=== PATIENT | female | born 1995 | race Caucasian/White ===

== ENCOUNTER 2018-05-02 10:37 | Emergency (ER) | payer MEDICAID ==
[~2018-05-02] VITALS: Ht 162.6 cm; Wt 65.0 kg
[2018-05-02 10:43] VITALS: BP 104/67
[2018-05-02] MEDS ORDERED: MAALOX/HYOSCYAMINE/LIDOCAINE 45 ML BTL PO ONE (11:30)
[2018-05-02] MEDS ORDERED: FAMOTIDINE 20 MG TABLET PO ONE (11:30)
[2018-05-02] MEDS ORDERED: ONDANSETRON ODT 4 MG PO ONE (11:30)
[2018-05-02 11:40] LABS: BASOPHILS # (AUTO) 0.03 x10^3/uL (0-0.1); BASOPHILS % (AUTO) 0 % (0-1); EOSINOPHILS # (AUTO) 0.27 x10^3/uL (0-0.4); EOSINOPHILS % (AUTO) 3 % (1-7); LYMPHOCYTES # (AUTO) 2.14 x10^3/uL (1-3.4); LYMPHOCYTES % (AUTO) 26 % (22-44); MD NO; MEAN CORPUSCULAR HEMOGLOBIN 32.2 pg (27.0-34.8); MEAN CORPUSCULAR HGB CONC 34.5 g/dL (32.4-35.8); MEAN CORPUSCULAR VOLUME 93.5 fL (80-100); MEAN PLATELET VOLUME 10.9 fL (7.4-10.4); MONOCYTES # (AUTO) 0.39 x10^3/uL (0.2-0.8); MONOCYTES % (AUTO) 5 % (2-9); NEUTROPHILS # (AUTO) 5.28 x10^3/uL (1.8-6.8); NEUTROPHILS % (AUTO) 65 % (42-75); PLATELET COUNT 134 x10^3/uL (130-400); RED BLOOD COUNT 4.41 x10^6/uL (3.82-5.3); RED CELL DISTRIBUTION WIDTH 13.3 % (9.6-15.2)
[2018-05-02 11:49] LABS: ALANINE AMINOTRANSFERASE 19 U/L (12-78); ALBUMIN 3.7 g/dL (3.4-5.0); ANION GAP 7 mmol/L (5-15); CALCIUM 8.7 mg/dL (8.5-10.1); CHLORIDE 107 mmol/L (98-107); CREATININE 0.74 mg/dL (0.55-1.02)
[2018-05-02 11:53] LABS: ALKALINE PHOSPHATASE 56 U/L (45-117); BILIRUBIN,TOTAL 0.4 mg/dL (0.2-1.0); TOTAL PROTEIN 7.1 g/dL (6.4-8.2)
[2018-05-02] MEDS ORDERED: NAPR220C2 PO (11:59)
[2018-05-02] MEDS ORDERED: MAALOX/HYOSCYAMINE/LIDOCAINE 45 ML BTL ONE (12:29)
[2018-05-02] MEDS ORDERED: ONDANSETRON ODT 4 MG ONE (12:29)
[2018-05-02] MEDS ORDERED: FAMOTIDINE 20 MG TABLET ONE (12:29)
== END 2018-05-02 13:21 | disposition home or self-care (01) ==
LOC: ED 13:15
DX: K29.00 Acute gastritis without bleeding (principal); F17.200 Nicotine dependence, unspecified, uncomplicated
CPT/HCPCS: 36415; 80053; 83690; 84703; 85025; 99284; Q0162

== ENCOUNTER 2020-02-18 21:42 | Emergency (ER) | payer MEDICAID ==
[~2020-02-18] VITALS: Ht 162.6 cm; Wt 87.4 kg
[~2020-02-18 21:42] MED LIST: BUPR-173 PO; NAPR220C2 PO; VALA500T8 PO
[2020-02-18 21:59] VITALS: BP 115/65
[2020-02-18 22:41] LABS: BASOPHILS # (AUTO) 0.02 x10^3/uL (0-0.1); BASOPHILS % (AUTO) 0 % (0-1); EOSINOPHILS # (AUTO) 0.42 x10^3/uL (0-0.4); EOSINOPHILS % (AUTO) 5 % (1-7); LYMPHOCYTES # (AUTO) 1.67 x10^3/uL (1-3.4); LYMPHOCYTES % (AUTO) 19 % (22-44); MD NO; MEAN CORPUSCULAR HEMOGLOBIN 34.6 pg (27.0-34.8); MEAN CORPUSCULAR HGB CONC 33.6 g/dL (32.4-35.8); MEAN PLATELET VOLUME 10.7 fL (7.4-10.4); MONOCYTES # (AUTO) 0.26 x10^3/uL (0.2-0.8); MONOCYTES % (AUTO) 3 % (2-9); NEUTROPHILS # (AUTO) 6.42 x10^3/uL (1.8-6.8); NEUTROPHILS % (AUTO) 73 % (42-75); PLATELET COUNT 176 x10^3/uL (130-400); RED CELL DISTRIBUTION WIDTH 16.6 % (9.6-15.2)
[2020-02-18 22:52] LABS: ALBUMIN 3.4 g/dL (3.4-5.0); ANION GAP 4 mmol/L (5-15); CALCIUM 9.1 mg/dL (8.5-10.1); CHLORIDE 108 mmol/L (98-107); CREATININE 0.88 mg/dL (0.55-1.02)
--- NOTE | 2020-02-18 23:35 | NUR ---
ASSUMED CARE OF PT AND WENT TO D/C PT AND PT LEFT WITHOUT RECEIVING D/C INSTRUCTIONS.
== END 2020-02-18 23:37 | disposition home or self-care (01) ==
LOC: ED 23:32
DX: R20.2 Paresthesia of skin (principal); G62.9 Polyneuropathy, unspecified
CPT/HCPCS: 36415; 80048; 82040; 83735; 84443; 84703; 85025; 99283

== ENCOUNTER 2020-03-07 11:41 | Inpatient (IN) | payer MEDICAID ==
[~2020-03-07] VITALS: Ht 170.2 cm; Wt 92.8 kg
--- NOTE | 2020-03-07 12:14 | NUR ---
RADIOLOGY AT BEDSIDE
--- NOTE | 2020-03-07 12:34 | NUR ---
Medics called securities underwriter to the room. Automation Driver found patient on the ground with overturned bed schroeder. Patient reports she fell out of bed. Automation Driver highly suspicious as side rail was locked with bedpan placement approximately 2 minutes prior. Automation Driver suspects patient took siderail down and sat down on the ground. Automation Driver suspicious as patient has been quite demanding/argumentative with securities underwriter as well as medic and evaluating MD. For example when securities underwriter first assessed patient patient reports "I herniated my neck in several places, you guys did two spinal taps and still have not done anything to figure out what is wrong. I demand you figure out what is wrong with my neck." When re-directed patient said "Yes I did tell the paramedics I hurt my ankle." Post "fall" No assessed injuries product development actuary & ER MD to bedside to evaluate. Incident report completed
--- NOTE | 2020-03-07 13:05 | NUR ---
Report to Sonal NAM
--- NOTE | 2020-03-07 13:05 | NUR ---
REPORT FROM CYRIL SHAHID. ASSUME CARE OF PT AT THIS TIME. PT SITTING UP IN BED USING CELL PHONE. NAD NOTED AT THIS TIME. AWAITING IMAGING AND LABS.
--- NOTE | 2020-03-07 13:10 | NUR ---
NEURO COMPUTER TO PT ROOM AND PLUGGED IN. AWAITING CALL.
[2020-03-07 13:19] LABS: BASOPHILS # (AUTO) 0.05 x10^3/uL (0-0.1); BASOPHILS % (AUTO) 1 % (0-1); EOSINOPHILS # (AUTO) 0.38 x10^3/uL (0-0.4); EOSINOPHILS % (AUTO) 5 % (1-7); LYMPHOCYTES # (AUTO) 1.75 x10^3/uL (1-3.4); LYMPHOCYTES % (AUTO) 22 % (22-44); MD NO; MEAN CORPUSCULAR HGB CONC 32.3 g/dL (32.4-35.8); MEAN PLATELET VOLUME 10.4 fL (7.4-10.4); MONOCYTES # (AUTO) 0.44 x10^3/uL (0.2-0.8); MONOCYTES % (AUTO) 6 % (2-9); NEUTROPHILS # (AUTO) 5.22 x10^3/uL (1.8-6.8); NEUTROPHILS % (AUTO) 67 % (42-75); PLATELET COUNT 172 x10^3/uL (130-400); RED BLOOD COUNT 3.66 x10^6/uL (3.82-5.3); RED CELL DISTRIBUTION WIDTH 17.3 % (9.6-15.2)
[2020-03-07 13:30] LABS: ANION GAP 5 mmol/L (5-15); CALCIUM 8.9 mg/dL (8.5-10.1); CHLORIDE 109 mmol/L (98-107); CREATININE 0.67 mg/dL (0.55-1.02)
--- NOTE | 2020-03-07 13:39 | NUR ---
UA COLLECTED AND SENT TO LAB. ERMD AWARE PT ALSO CONCERNED ABOUT POTENTIAL . ORDERS TO FOLLOW. BLANKET APPLIED TO PT, LIGHTS DIMMED AND CALL LIGHT IN REACH. PT DENIES FURTHER NEEDS AT THIS TIME.
[2020-03-07 13:44] LABS: HCG UR SG 1.024 (1.003-1.030)
[2020-03-07 13:48] LABS: AMPHETAMINE SCREEN, URINE Negative (Negative); BARBITURATE SCREEN, URINE Negative (Negative); BENZODIAZEPINE SCREEN, URINE Negative (Negative); CANNABINOID SCREEN, URINE Negative (Negative); COCAINE SCREEN, URINE Negative (Negative); METHADONE SCREEN, URINE Negative (Negative); OPIATE SCREEN, URINE Negative (Negative)
[2020-03-07] MEDS ORDERED: ACETAMINOPHEN 500 MG TABLET ONE (14:03)
[2020-03-07] MEDS ORDERED: ACETAMINOPHEN 500 MG TABLET PO ONE (14:30)
[2020-03-07] MEDS ORDERED: GABA-826 PO (15:20)
[2020-03-07] MEDS ORDERED: GABA-827 PO (15:20)
--- NOTE | 2020-03-07 15:22 | NUR ---
IV START AND PREPARED FOR ADMISSION TO HOSPITAL. PT LAYING BACK IN BED, LAUGHING AT TELEVISION SHOW AND USING CELL PHONE. NAD NOTED AT THIS TIME. RESPIRATIONS EVEN AND UNLABORED ON RA. VSS.
[2020-03-07] MEDS ORDERED: ONDANSETRON ODT 4 MG PO PRN (16:00)
[2020-03-07] MEDS ORDERED: ONDANSETRON 2MG/ML, 2ML IVPush PRN (16:00)
[2020-03-07] MEDS: SODIUM CHLORIDE 0.9% 1,000 ML IV SCH (17:52)
[2020-03-07] MEDS: HEPARIN 5,000 UNITS/ML, 1ML SQ SCH (17:55)
[2020-03-07] MEDS: NICOTINE 21 MG/24 HR PATCH.TD24 TD SCH (17:56)
[2020-03-07 20:04] VITALS: BP 101/65
[2020-03-07] MEDS: ACETAMINOPHEN 325 MG TABLET PO PRN (20:12)
[2020-03-07] MEDS: GABAPENTIN 400 MG CAPSULE PO SCH (20:21)
[2020-03-07] MEDS: GABAPENTIN 100 MG CAPSULE PO SCH (20:22)
[2020-03-08] MEDS: HEPARIN 5,000 UNITS/ML, 1ML SQ SCH ×3 (01:02→17:27)
[2020-03-08 02:08] VITALS: BP 93/59
[2020-03-08] MEDS: ACETAMINOPHEN 325 MG TABLET PO PRN ×3 (04:44→20:51)
[2020-03-08 06:07] LABS: ANION GAP 4 mmol/L (5-15); CALCIUM 8.8 mg/dL (8.5-10.1); CHLORIDE 111 mmol/L (98-107); CREATININE 0.59 mg/dL (0.55-1.02)
[2020-03-08 06:11] LABS: BASOPHILS # (AUTO) 0.01 x10^3/uL (0-0.1); BASOPHILS % (AUTO) 0 % (0-1); EOSINOPHILS # (AUTO) 0.27 x10^3/uL (0-0.4); EOSINOPHILS % (AUTO) 5 % (1-7); LYMPHOCYTES # (AUTO) 1.47 x10^3/uL (1-3.4); LYMPHOCYTES % (AUTO) 26 % (22-44); MD NO; MEAN CORPUSCULAR HEMOGLOBIN 34.9 pg (27.0-34.8); MEAN CORPUSCULAR HGB CONC 33.5 g/dL (32.4-35.8); MEAN PLATELET VOLUME 10.7 fL (7.4-10.4); MONOCYTES # (AUTO) 0.26 x10^3/uL (0.2-0.8); MONOCYTES % (AUTO) 5 % (2-9); NEUTROPHILS # (AUTO) 3.76 x10^3/uL (1.8-6.8); NEUTROPHILS % (AUTO) 65 % (42-75); PLATELET COUNT 149 x10^3/uL (130-400); RED BLOOD COUNT 3.54 x10^6/uL (3.82-5.3); RED CELL DISTRIBUTION WIDTH 17.2 % (9.6-15.2)
[2020-03-08 07:42] VITALS: BP 109/66
[2020-03-08] MEDS: SODIUM CHLORIDE 0.9% 1,000 ML IV SCH (08:39)
[2020-03-08] MEDS: BUPROPION SR 100 MG TABLET PO SCH (08:42)
[2020-03-08] MEDS: GABAPENTIN 100 MG CAPSULE PO SCH ×2 (09:00→20:48)
[2020-03-08 13:10] VITALS: BP 108/68
[2020-03-08] MEDS ORDERED: GADOTERATE 10 MMOL/20 ML SYR ONE (15:17)
[2020-03-08 15:54] LABS: MICROSCOPIC NOT IND
[2020-03-08] MEDS: NICOTINE 21 MG/24 HR PATCH.TD24 TD SCH (17:27)
[2020-03-08 19:35] VITALS: BP 108/72
[2020-03-08 19:55] VITALS: BP 106/68
[2020-03-08] MEDS: GABAPENTIN 400 MG CAPSULE PO SCH (20:51)
[2020-03-09] MEDS: HEPARIN 5,000 UNITS/ML, 1ML SQ SCH ×3 (01:38→17:32)
[2020-03-09 01:39] VITALS: BP 112/70
[2020-03-09] MEDS: SODIUM CHLORIDE 0.9% 1,000 ML IV SCH ×2 (02:35→12:37)
[2020-03-09 07:00] VITALS: BP 115/76
[2020-03-09] MEDS: GABAPENTIN 100 MG CAPSULE PO SCH ×2 (07:25→20:57)
[2020-03-09] MEDS: ACETAMINOPHEN 325 MG TABLET PO PRN ×2 (07:33→17:31)
[2020-03-09] MEDS: BUPROPION SR 100 MG TABLET PO SCH (07:35)
[2020-03-09 12:31] VITALS: BP 110/71
[2020-03-09] MEDS ORDERED: NICO-487 TD (14:35)
[2020-03-09] MEDS ORDERED: ACET325T26 PO (14:35)
[2020-03-09] MEDS ORDERED: CYAN-27 PO (14:35)
[2020-03-09] MEDS: NICOTINE 21 MG/24 HR PATCH.TD24 TD SCH (17:32)
[2020-03-09 19:48] VITALS: BP 104/68
[2020-03-09] MEDS: GABAPENTIN 400 MG CAPSULE PO SCH (21:00)
[2020-03-10] MEDS: HEPARIN 5,000 UNITS/ML, 1ML SQ SCH ×3 (00:57→18:06)
[2020-03-10] MEDS: ACETAMINOPHEN 325 MG TABLET PO PRN (01:00)
[2020-03-10 01:15] VITALS: BP 112/73
[2020-03-10 08:00] VITALS: BP 108/70
[2020-03-10] MEDS: CYANOCOBALAMIN 1,000 MCG TABLET PO SCH (09:45)
[2020-03-10] MEDS: GABAPENTIN 100 MG CAPSULE PO SCH ×2 (09:45→20:37)
[2020-03-10] MEDS: BUPROPION SR 100 MG TABLET PO SCH (09:46)
[2020-03-10 10:23] VITALS: BP 105/67
[2020-03-10 14:21] VITALS: BP 121/74
[2020-03-10] MEDS: NICOTINE 21 MG/24 HR PATCH.TD24 TD SCH (18:06)
[2020-03-10 20:07] VITALS: BP 119/69
[2020-03-10] MEDS: GABAPENTIN 400 MG CAPSULE PO SCH (20:37)
[2020-03-11 01:13] VITALS: BP 105/65
[2020-03-11] MEDS: HEPARIN 5,000 UNITS/ML, 1ML SQ SCH ×3 (01:18→17:30)
[2020-03-11 06:57] VITALS: BP 97/63
[2020-03-11] MEDS: GABAPENTIN 100 MG CAPSULE PO SCH ×2 (09:24→20:30)
[2020-03-11] MEDS: CYANOCOBALAMIN 1,000 MCG TABLET PO SCH (09:24)
[2020-03-11] MEDS: BUPROPION SR 100 MG TABLET PO SCH (09:24)
[2020-03-11 12:48] VITALS: BP 100/64
[2020-03-11] MEDS: ACETAMINOPHEN 325 MG TABLET PO PRN (13:10)
[2020-03-11] MEDS: NICOTINE 21 MG/24 HR PATCH.TD24 TD SCH (17:30)
[2020-03-11 19:59] VITALS: BP 104/69
[2020-03-11] MEDS: GABAPENTIN 400 MG CAPSULE PO SCH (20:30)
[2020-03-12 01:10] VITALS: BP 100/56
[2020-03-12] MEDS: HEPARIN 5,000 UNITS/ML, 1ML SQ SCH ×3 (01:23→18:24)
[2020-03-12 07:41] VITALS: BP 109/65
[2020-03-12] MEDS: BUPROPION SR 100 MG TABLET PO SCH (09:12)
[2020-03-12] MEDS: CYANOCOBALAMIN 1,000 MCG TABLET PO SCH (09:12)
[2020-03-12] MEDS: GABAPENTIN 100 MG CAPSULE PO SCH ×2 (09:12→20:14)
[2020-03-12 14:16] VITALS: BP 102/68
[2020-03-12] MEDS: NICOTINE 21 MG/24 HR PATCH.TD24 TD SCH (18:24)
[2020-03-12] MEDS: ACETAMINOPHEN 325 MG TABLET PO PRN (18:28)
[2020-03-12 19:10] VITALS: BP 101/68
[2020-03-12] MEDS: GABAPENTIN 400 MG CAPSULE PO SCH (20:14)
[2020-03-13] MEDS: HEPARIN 5,000 UNITS/ML, 1ML SQ SCH ×3 (03:14→20:40)
[2020-03-13 03:15] VITALS: BP 111/70
[2020-03-13] MEDS: CYANOCOBALAMIN 1,000 MCG TABLET PO SCH (07:38)
[2020-03-13] MEDS: GABAPENTIN 100 MG CAPSULE PO SCH ×2 (07:38→20:40)
[2020-03-13] MEDS: BUPROPION SR 100 MG TABLET PO SCH (07:38)
[2020-03-13 08:24] VITALS: BP 94/62
[2020-03-13 18:55] VITALS: BP 130/73
[2020-03-13] MEDS: GABAPENTIN 400 MG CAPSULE PO SCH (20:40)
[2020-03-13] MEDS: NICOTINE 21 MG/24 HR PATCH.TD24 TD SCH (20:41)
[2020-03-14 01:54] VITALS: BP 95/56
[2020-03-14] MEDS: HEPARIN 5,000 UNITS/ML, 1ML SQ SCH ×3 (03:21→20:57)
[2020-03-14] MEDS: GABAPENTIN 100 MG CAPSULE PO SCH ×2 (07:28→21:00)
[2020-03-14] MEDS: CYANOCOBALAMIN 1,000 MCG TABLET PO SCH (07:28)
[2020-03-14] MEDS: BUPROPION SR 100 MG TABLET PO SCH (07:28)
[2020-03-14 08:36] VITALS: BP 102/66
[2020-03-14 09:35] LABS: ALANINE AMINOTRANSFERASE 142 U/L (12-78); ALBUMIN 3.7 g/dL (3.4-5.0); ANION GAP 5 mmol/L (5-15); CALCIUM 9.7 mg/dL (8.5-10.1); CHLORIDE 109 mmol/L (98-107); CREATININE 0.69 mg/dL (0.55-1.02)
[2020-03-14 09:38] LABS: MEAN CORPUSCULAR HEMOGLOBIN 34.5 pg (27.0-34.8); MEAN CORPUSCULAR HGB CONC 32.9 g/dL (32.4-35.8); MEAN PLATELET VOLUME 10.6 fL (7.4-10.4); PLATELET COUNT 160 x10^3/uL (130-400); RED CELL DISTRIBUTION WIDTH 16.8 % (9.6-15.2)
[2020-03-14 10:01] LABS: ALKALINE PHOSPHATASE 81 U/L (45-117); BILIRUBIN,TOTAL 0.4 mg/dL (0.2-1.0); TOTAL PROTEIN 7.8 g/dL (6.4-8.2)
[2020-03-14 10:05] LABS: BASOPHILS # (AUTO) 0.01 x10^3/uL (0-0.1); BASOPHILS % (AUTO) 0 % (0-1); EOSINOPHILS # (AUTO) 0.19 x10^3/uL (0-0.4); EOSINOPHILS % (AUTO) 3 % (1-7); LYMPHOCYTES # (AUTO) 1.48 x10^3/uL (1-3.4); LYMPHOCYTES % (AUTO) 21 % (22-44); MD SCAN; MONOCYTES % (AUTO) 6 % (2-9); NEUTROPHILS # (AUTO) 5.04 x10^3/uL (1.8-6.8); NEUTROPHILS % (AUTO) 71 % (42-75)
[2020-03-14 15:59] VITALS: BP 101/67
[2020-03-14 19:17] VITALS: BP 98/63
[2020-03-14] MEDS: GABAPENTIN 400 MG CAPSULE PO SCH (20:57)
[2020-03-14] MEDS: NICOTINE 21 MG/24 HR PATCH.TD24 TD SCH (20:57)
[2020-03-15 01:54] VITALS: BP 95/58
[2020-03-15] MEDS: HEPARIN 5,000 UNITS/ML, 1ML SQ SCH ×3 (05:00→20:03)
[2020-03-15 06:16] LABS: BASOPHILS # (AUTO) 0.02 x10^3/uL (0-0.1); BASOPHILS % (AUTO) 0 % (0-1); EOSINOPHILS # (AUTO) 0.17 x10^3/uL (0-0.4); EOSINOPHILS % (AUTO) 2 % (1-7); LYMPHOCYTES # (AUTO) 1.52 x10^3/uL (1-3.4); LYMPHOCYTES % (AUTO) 20 % (22-44); MD NO; MEAN CORPUSCULAR HEMOGLOBIN 34.1 pg (27.0-34.8); MEAN CORPUSCULAR HGB CONC 32.6 g/dL (32.4-35.8); MEAN PLATELET VOLUME 9.8 fL (7.4-10.4); MONOCYTES # (AUTO) 0.42 x10^3/uL (0.2-0.8); MONOCYTES % (AUTO) 6 % (2-9); NEUTROPHILS # (AUTO) 5.49 x10^3/uL (1.8-6.8); NEUTROPHILS % (AUTO) 72 % (42-75); PLATELET COUNT 164 x10^3/uL (130-400); RED CELL DISTRIBUTION WIDTH 16.3 % (9.6-15.2)
[2020-03-15 06:24] LABS: ALBUMIN 3.4 g/dL (3.4-5.0); ANION GAP 6 mmol/L (5-15); CALCIUM 9.1 mg/dL (8.5-10.1); CHLORIDE 107 mmol/L (98-107)
[2020-03-15 06:29] LABS: % IRON SATURATION 34 % (20-55); ALANINE AMINOTRANSFERASE 136 U/L (12-78); ALKALINE PHOSPHATASE 76 U/L (45-117); BILIRUBIN,TOTAL 0.5 mg/dL (0.2-1.0); CREATINE KINASE, TOTAL 286 U/L (26-192); CREATININE 0.73 mg/dL (0.55-1.02); IRON LEVEL 136 mcg/dL (50-170); TOTAL IRON BINDING CAPACITY 399 mcg/dL (250-450); TOTAL PROTEIN 7.4 g/dL (6.4-8.2)
[2020-03-15 07:25] VITALS: BP 92/49
[2020-03-15] MEDS: GABAPENTIN 100 MG CAPSULE PO SCH ×2 (08:04→21:00)
[2020-03-15] MEDS: BUPROPION SR 100 MG TABLET PO SCH (08:05)
[2020-03-15] MEDS: ACETAMINOPHEN 325 MG TABLET PO PRN (08:05)
[2020-03-15] MEDS: CYANOCOBALAMIN 1,000 MCG TABLET PO SCH (08:05)
[2020-03-15] MEDS: QUETIAPINE 25MG TABLET PO PRN (12:08)
[2020-03-15 13:47] VITALS: BP 122/70
[2020-03-15 18:55] VITALS: BP 134/79
[2020-03-15] MEDS: NICOTINE 21 MG/24 HR PATCH.TD24 TD SCH (20:03)
[2020-03-15] MEDS: GABAPENTIN 400 MG CAPSULE PO SCH (20:03)
[2020-03-16 00:41] VITALS: BP 101/63
[2020-03-16] MEDS: HEPARIN 5,000 UNITS/ML, 1ML SQ SCH (04:28)
[2020-03-16 08:17] VITALS: BP 103/65
[2020-03-16] MEDS: BUPROPION SR 100 MG TABLET PO SCH (08:25)
[2020-03-16] MEDS: GABAPENTIN 100 MG CAPSULE PO SCH ×2 (08:25→21:00)
[2020-03-16] MEDS: ENOXAPARIN 40 MG/0.4 ML SQ SCH (12:37)
[2020-03-16 13:19] VITALS: BP 113/70
[2020-03-16 19:54] VITALS: BP 97/64
[2020-03-16] MEDS: QUETIAPINE 25MG TABLET PO PRN (21:29)
[2020-03-16] MEDS: GABAPENTIN 400 MG CAPSULE PO SCH (21:29)
[2020-03-16] MEDS: NICOTINE 21 MG/24 HR PATCH.TD24 TD SCH (21:36)
[2020-03-17 01:14] VITALS: BP 108/66
[2020-03-17 08:01] VITALS: BP 107/65
[2020-03-17] MEDS: GABAPENTIN 100 MG CAPSULE PO SCH ×2 (09:47→20:24)
[2020-03-17] MEDS: BUPROPION SR 100 MG TABLET PO SCH (09:47)
[2020-03-17] MEDS: ENOXAPARIN 40 MG/0.4 ML SQ SCH (13:41)
[2020-03-17 13:44] VITALS: BP 92/58
[2020-03-17] MEDS: ACETAMINOPHEN 325 MG TABLET PO PRN (18:05)
[2020-03-17 19:16] VITALS: BP 102/66
[2020-03-17] MEDS: GABAPENTIN 400 MG CAPSULE PO SCH (20:24)
[2020-03-17] MEDS: NICOTINE 21 MG/24 HR PATCH.TD24 TD SCH (20:24)
[2020-03-17] MEDS: QUETIAPINE 25MG TABLET PO PRN (22:09)
[2020-03-18 00:26] VITALS: BP 106/65
[2020-03-18 06:40] LABS: ALBUMIN 3.3 g/dL (3.4-5.0)
[2020-03-18 06:42] LABS: BILIRUBIN, DIRECT 0.1 mg/dL (0.1-0.2); BILIRUBIN,INDIRECT 0.3 mg/dL (0.0-2.0); BILIRUBIN,TOTAL 0.4 mg/dL (0.2-1.0); TOTAL PROTEIN 7.1 g/dL (6.4-8.2)
[2020-03-18 07:10] VITALS: BP 93/58
[2020-03-18] MEDS: BUPROPION SR 100 MG TABLET PO SCH (09:40)
[2020-03-18] MEDS: GABAPENTIN 100 MG CAPSULE PO SCH ×2 (09:40→20:27)
[2020-03-18] MEDS: ACETAMINOPHEN 325 MG TABLET PO PRN (09:53)
[2020-03-18] MEDS: ENOXAPARIN 40 MG/0.4 ML SQ SCH (12:10)
[2020-03-18 14:02] VITALS: BP 106/69
[2020-03-18 18:54] VITALS: BP 97/65
[2020-03-18] MEDS: GABAPENTIN 400 MG CAPSULE PO SCH (20:26)
[2020-03-18] MEDS: NICOTINE 21 MG/24 HR PATCH.TD24 TD SCH (20:27)
[2020-03-18] MEDS: QUETIAPINE 25MG TABLET PO PRN (23:30)
[2020-03-19 00:10] VITALS: BP 118/75
[2020-03-19 06:55] VITALS: BP 96/61
[2020-03-19] MEDS: GABAPENTIN 100 MG CAPSULE PO SCH ×2 (08:26→20:22)
[2020-03-19] MEDS: ACETAMINOPHEN 325 MG TABLET PO PRN ×2 (08:26→20:22)
[2020-03-19] MEDS: BUPROPION SR 100 MG TABLET PO SCH (08:26)
[2020-03-19] MEDS: SENNOSIDES 8.6 MG TABLET PO SCH (10:52)
[2020-03-19] MEDS: ENOXAPARIN 40 MG/0.4 ML SQ SCH (10:53)
[2020-03-19] MEDS ORDERED: POLYETHYLENE GLYCOL 17 GM PACKET PO ONE (11:00)
[2020-03-19] MEDS: NICOTINE 21 MG/24 HR PATCH.TD24 TD SCH (13:06)
[2020-03-19 13:12] VITALS: BP 97/58
[2020-03-19] MEDS: GABAPENTIN 400 MG CAPSULE PO SCH (20:22)
[2020-03-19 21:17] VITALS: BP 97/63
[2020-03-20 01:47] VITALS: BP 101/61
[2020-03-20] MEDS: SENNOSIDES 8.6 MG TABLET PO SCH (08:12)
[2020-03-20] MEDS: BUPROPION SR 100 MG TABLET PO SCH (08:12)
[2020-03-20] MEDS: GABAPENTIN 100 MG CAPSULE PO SCH ×2 (08:12→20:13)
[2020-03-20 08:27] VITALS: BP 98/66
[2020-03-20 14:16] VITALS: BP 118/76
[2020-03-20] MEDS: ENOXAPARIN 40 MG/0.4 ML SQ SCH (14:16)
[2020-03-20] MEDS: NICOTINE 21 MG/24 HR PATCH.TD24 TD SCH (14:16)
[2020-03-20] MEDS: GABAPENTIN 400 MG CAPSULE PO SCH (20:11)
[2020-03-20] MEDS: LACTULOSE 20 GM/30 ML UDC PO SCH (20:11)
[2020-03-20 20:30] VITALS: BP 104/66
[2020-03-20] MEDS: QUETIAPINE 25MG TABLET PO PRN (21:16)
[2020-03-21 01:21] VITALS: BP 93/53
[2020-03-21 06:52] VITALS: BP 86/51
[2020-03-21 07:33] VITALS: BP 93/61
[2020-03-21] MEDS ORDERED: GLYCERIN ADULT SUPP PR ONE (08:30)
[2020-03-21] MEDS: BUPROPION SR 100 MG TABLET PO SCH (08:51)
[2020-03-21] MEDS: GABAPENTIN 100 MG CAPSULE PO SCH ×2 (08:51→20:01)
[2020-03-21] MEDS: LACTULOSE 20 GM/30 ML UDC PO SCH (08:51)
[2020-03-21] MEDS: SENNOSIDES 8.6 MG TABLET PO SCH (08:51)
[2020-03-21] MEDS: NICOTINE 21 MG/24 HR PATCH.TD24 TD SCH (14:45)
[2020-03-21] MEDS: ENOXAPARIN 40 MG/0.4 ML SQ SCH (14:45)
[2020-03-21 15:47] VITALS: BP 110/72
[2020-03-21] MEDS: ACETAMINOPHEN 325 MG TABLET PO PRN (19:57)
[2020-03-21] MEDS: GABAPENTIN 400 MG CAPSULE PO SCH (19:57)
[2020-03-21 20:42] VITALS: BP 116/78
[2020-03-21] MEDS: QUETIAPINE 25MG TABLET PO PRN (21:54)
[2020-03-22 02:04] VITALS: BP 99/60
[2020-03-22 07:07] VITALS: BP 97/63
[2020-03-22] MEDS: GABAPENTIN 100 MG CAPSULE PO SCH ×2 (08:47→20:33)
[2020-03-22] MEDS: BUPROPION SR 100 MG TABLET PO SCH (08:47)
[2020-03-22] MEDS: SENNOSIDES 8.6 MG TABLET PO SCH ×2 (08:47→08:48)
[2020-03-22] MEDS: ENOXAPARIN 40 MG/0.4 ML SQ SCH (13:08)
[2020-03-22] MEDS: NICOTINE 21 MG/24 HR PATCH.TD24 TD SCH (13:08)
[2020-03-22 14:18] VITALS: BP 122/79
[2020-03-22] MEDS: ACETAMINOPHEN 325 MG TABLET PO PRN (20:29)
[2020-03-22] MEDS: GABAPENTIN 400 MG CAPSULE PO SCH (20:29)
[2020-03-22 20:45] VITALS: BP 111/76
[2020-03-22] MEDS: QUETIAPINE 25MG TABLET PO PRN (22:50)
[2020-03-23 02:38] VITALS: BP 99/64
[2020-03-23] MEDS: BUPROPION SR 100 MG TABLET PO SCH (08:37)
[2020-03-23] MEDS: GABAPENTIN 100 MG CAPSULE PO SCH ×2 (08:37→20:24)
[2020-03-23] MEDS: SENNOSIDES 8.6 MG TABLET PO SCH (08:38)
[2020-03-23] MEDS: ACETAMINOPHEN 325 MG TABLET PO PRN ×2 (08:45→20:24)
[2020-03-23] MEDS: NICOTINE 21 MG/24 HR PATCH.TD24 TD SCH (08:45)
[2020-03-23 10:44] VITALS: BP 98/69
[2020-03-23] MEDS: ENOXAPARIN 40 MG/0.4 ML SQ SCH (12:37)
[2020-03-23] MEDS: QUETIAPINE 25MG TABLET PO PRN ×2 (12:37→21:48)
[2020-03-23 12:53] VITALS: BP 115/77
[2020-03-23 18:55] VITALS: BP 100/67
[2020-03-23] MEDS: GABAPENTIN 400 MG CAPSULE PO SCH (20:24)
[2020-03-24 03:11] VITALS: BP 95/53
[2020-03-24 10:03] VITALS: BP 100/65
[2020-03-24] MEDS: BUPROPION SR 100 MG TABLET PO SCH (10:34)
[2020-03-24] MEDS: SENNOSIDES 8.6 MG TABLET PO SCH (10:34)
[2020-03-24] MEDS: GABAPENTIN 100 MG CAPSULE PO SCH ×2 (10:35→20:32)
[2020-03-24] MEDS: NICOTINE 21 MG/24 HR PATCH.TD24 TD SCH (10:35)
[2020-03-24] MEDS: ENOXAPARIN 40 MG/0.4 ML SQ SCH (10:49)
[2020-03-24] MEDS: ACETAMINOPHEN 325 MG TABLET PO PRN ×2 (10:50→20:32)
[2020-03-24] MEDS: QUETIAPINE 25MG TABLET PO PRN ×2 (12:08→20:43)
[2020-03-24 15:59] VITALS: BP 108/73
[2020-03-24] MEDS: GABAPENTIN 400 MG CAPSULE PO SCH (20:32)
[2020-03-24 20:34] VITALS: BP 116/79
[2020-03-25 02:03] VITALS: BP 89/53
[2020-03-25 07:39] VITALS: BP 102/69
[2020-03-25 07:47] VITALS: BP 135/72
[2020-03-25] MEDS: BUPROPION SR 100 MG TABLET PO SCH (09:32)
[2020-03-25] MEDS: GABAPENTIN 100 MG CAPSULE PO SCH ×2 (09:32→21:09)
[2020-03-25] MEDS: CHOLECALCIFEROL 5,000u TAB PO SCH (09:32)
[2020-03-25] MEDS: SENNOSIDES 8.6 MG TABLET PO SCH (09:33)
[2020-03-25] MEDS: NICOTINE 21 MG/24 HR PATCH.TD24 TD SCH (11:28)
[2020-03-25] MEDS: ACETAMINOPHEN 325 MG TABLET PO PRN (11:29)
[2020-03-25] MEDS: ENOXAPARIN 40 MG/0.4 ML SQ SCH (11:29)
[2020-03-25 14:00] VITALS: BP 110/76
[2020-03-25] MEDS: QUETIAPINE 25MG TABLET PO PRN ×2 (14:11→21:09)
[2020-03-25 20:21] VITALS: BP 106/71
[2020-03-25] MEDS: GABAPENTIN 400 MG CAPSULE PO SCH (21:09)
[2020-03-26 01:53] VITALS: BP 106/67
[2020-03-26 07:33] VITALS: BP 96/57
[2020-03-26] MEDS: BUPROPION SR 100 MG TABLET PO SCH (09:43)
[2020-03-26] MEDS: SENNOSIDES 8.6 MG TABLET PO SCH (09:43)
[2020-03-26] MEDS: CHOLECALCIFEROL 5,000u TAB PO SCH (09:43)
[2020-03-26] MEDS: GABAPENTIN 100 MG CAPSULE PO SCH ×2 (09:43→19:37)
[2020-03-26] MEDS: ENOXAPARIN 40 MG/0.4 ML SQ SCH (09:48)
[2020-03-26] MEDS: NICOTINE 21 MG/24 HR PATCH.TD24 TD SCH (10:27)
[2020-03-26 14:55] VITALS: BP 105/71
[2020-03-26] MEDS: ACETAMINOPHEN 325 MG TABLET PO PRN (16:28)
[2020-03-26] MEDS: GABAPENTIN 400 MG CAPSULE PO SCH (19:36)
[2020-03-26] MEDS: QUETIAPINE 25MG TABLET PO PRN (19:37)
[2020-03-26 19:39] VITALS: BP 112/67
[2020-03-27 01:00] VITALS: BP 100/65
[2020-03-27] MEDS: ACETAMINOPHEN 325 MG TABLET PO PRN ×2 (02:33→09:55)
[2020-03-27 07:38] VITALS: BP 95/60
[2020-03-27] MEDS: SENNOSIDES 8.6 MG TABLET PO SCH (09:00)
[2020-03-27] MEDS: CHOLECALCIFEROL 5,000u TAB PO SCH (09:51)
[2020-03-27] MEDS: ENOXAPARIN 40 MG/0.4 ML SQ SCH (09:51)
[2020-03-27] MEDS: GABAPENTIN 100 MG CAPSULE PO SCH (09:51)
[2020-03-27] MEDS: BUPROPION SR 100 MG TABLET PO SCH (09:51)
[2020-03-27] MEDS: NICOTINE 21 MG/24 HR PATCH.TD24 TD SCH (09:51)
[2020-03-27 14:35] VITALS: BP 116/80
[2020-03-27] MEDS ORDERED: CHOL500045 PO (15:40)
== END 2020-03-27 18:00 | disposition home or self-care (01) | DRG 99 ==
LOC: ED 13:46 → EDIP 15:04 → 3N 16:44
PROVIDERS: ADMIT Internal Medicine; ATTEND Internal Medicine
DX: G37.3 Acute transverse myelitis in demyelinating disease of central nervous system (principal); S93.401A Sprain of unspecified ligament of right ankle, initial encounter; M53.82 Other specified dorsopathies, cervical region; D75.89 Other specified diseases of blood and blood-forming organs; E55.9 Vitamin D deficiency, unspecified; E66.9 Obesity, unspecified; Z68.32 Body mass index [BMI] 32.0-32.9, adult; F17.210 Nicotine dependence, cigarettes, uncomplicated; F41.1 Generalized anxiety disorder; F41.8 Other specified anxiety disorders; G47.00 Insomnia, unspecified; G57.90 Unspecified mononeuropathy of unspecified lower limb; K59.00 Constipation, unspecified; N28.9 Disorder of kidney and ureter, unspecified; Z91.040 Latex allergy status; Z56.0 Unemployment, unspecified; Z74.01 Bed confinement status; Z79.899 Other long term (current) drug therapy; W18.39XA Other fall on same level, initial encounter; Y93.89 Activity, other specified; Y92.89 Other specified places as the place of occurrence of the external cause; Y99.8 Other external cause status
CPT/HCPCS: 36415; 72148; 72156; 76700; 80048; 80053; 80074; 80076; 80307; 81003; 81025; 82306; 82550; 82565; 82607; 83540; 83550; 83735; 84443; 85025; 99285; G0378; J1644; J1650; Q0162; A9575; J7030